=== PATIENT | male | born 1960 | race Caucasian/White ===

== ENCOUNTER 2025-06-10 14:48 | Emergency (ER) | payer MEDICAID, SELFPAY ==
[2025-06-10] VITALS (11 sets, daily range): BP systolic 138–140; BP diastolic 78–86; PULSE 74–95; RESP 15–30; TEMP 36.8; O2SAT 95–100
--- NOTE | ~2025-06-10 | XR_ITS ---
EXAMINATION: XR chest 2V, 06/10/2025 15:15 POSTBED STITCHER HISTORY: chest pain MID ANTERIOR SINCE THIS MORNING COMPARISON: No comparisons available. Technique: 2 views obtained. Findings: The lungs are clear, no effusion. No pneumothorax. Heart is normal size. Mediastinal and hilar contours are within normal limits. Bony thorax no acute abnormality. Impression: No acute cardiopulmonary abnormality. Reviewed, dictated and finalized at location P. BED STITCHER Impression: No acute cardiopulmonary abnormality.
--- NOTE | 2025-06-10 14:50 | ECG_ITS ---
Test Date: 2025-06-10 14:57:37 Measurements Intervals [place] Rate: 88 P: 10 [place]: 170 QRS: -6 QRSD: 89 T: 60 QT: 358 QTc: 435 Interpretive Statements SINUS RHYTHM LOW QRS VOLTAGE IN PRECORDIAL LEADS PATTERN CONSISTENT WITH PULMONARY DISEASE MINIMAL Q WAVES- HIGH LATERAL LEADS BASELINE ARTIFACT- I, II, III, AVR, AVL, AVF, V1, V3-V6 BORDERLINE ECG No previous ECG available for comparison Electronically Signed On 06-10-2025 15:05:18 CUTTER FINISHER by Som Flores D.O.
--- OUTSIDE RECORDS SUMMARY | 2025-06-10 14:50 | XMS_ITS | Encounter Summary ---
Author Organization [facility] Address [address] [place] [address] Phone Care Team Providers Care Digital Media Designer Name Role Phone Jean-Paul Fall APRN, CNP Primary Care Provider Reason for Visit * Reason Comments Medication Refill Encounter Details Date Type Department Care Team (Late st Contact Info) Description 10/23/2020 Refill [facility] - Neurology - [place] [address] [facility] [place] [phone] Tristan Acosta MD [address] [place] [phone] Medication Refill Social History Tobacco Use Types Packs/Day Years Used Date Smoking Tobacco: Every Day Cigarettes 0.5 30 Smokeless Tobacco: Never Alcohol Use Standard Drinks/Week Comments Yes 0 (1 standard drink = 0.6 oz pur e alcohol) Sex and Gender Information Value Date Recorded Sex Assigned at Not on file Legal Sex Male 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
--- OUTSIDE RECORDS SUMMARY | 2025-06-10 14:50 | XMS_ITS | Clinical Summary ---
Author Organization [facility] Address [address] [place] [address] Care Team Providers Care Medicaid Business Analyst Name Role Phone Jean-Paul Fall Praful SILVAN-EQUITY HOLDER Primary Care Provider Source Comments [facility],non-owned Affiliates and Associated Physician Practices is amultiple site organization consisting of ambulatory clinics and hospital sitesin [place], [place], [place] and [place]. This disclosure is being madepursuant to the Care Everywhere program and may not contain all information available regarding this patient. Last updated 18.[facility] Allergies No known active allergies Medications * Be aware that medications may not be up to date on this document. Alwaysverify current medications with the patient. amLODIPine (Norvasc) 10 MG tablet Take 10 mg by mouth once daily 2 Active ALPRAZOLAM PO Take by mouth once daily Active levETIRAcetam (Keppra) 500 MG tablet Take 1 tablet by mouth 2 times daily 2 Active losartan (Cozaar) 50 MG tablet Take 50 mg by mouth Active sertraline (Zoloft) 50 MG tablet Take 50 mg by mouth once daily 2 Active Mavyret 100-40 MG tabletIndicatio ns:Hepatitis C, Genotype 1 Take 3 (three) tablets by mouth daily with food x 8 weeks Reasons: Hepatitis due to Hepatitis C Virus, Genotype 1 84 tablet 1 2 Active Active Problems Problem Noted Date Diagnosed Date Elevated liver enzymes 01/25/2022 Chronic hepatitis C without hepatic coma 022 Overview (04/02/2022): Hepatitis B core antibody non reactive no immunity to hepatitis B Genotype 1a or 1b fibroscan Date of Exam: 04/02/2022 LSM, kPa) median: 12.8 CAP 307 Mild depression 04/15/2019 Overview (01/25/2022): Last Assessment & Plan: Condition: stable. Take medications as ordered by Provider; notify Provider if you cannot take medications as ordered or are having difficulties or side-effects from medications (do not stop medications without notifying Provider). If symptoms worsen or do not improve/stabilize, notify health care provider right away. If thoughts of harming self or others notify health care provider immediately &/or seek urgent/emergent care including calling Suicide Hotline ( ) or 911. Follow up in three months with PCP Seizures 04/15/2019 Overview (01/25/2022): Last Assessment & Plan: Condition: stable Take medication as prescribed. No bathing, swimming, operating dangerous machinery, climbing ladders without supervision No driving unless cleared by your health care provider. Follow up in: three months [place], post-stroke 04/15/2019 Overview (01/25/2022): Last Assessment & Plan: Condition: stable Pt encouraged to remove all clutter, loose rugs and slippery rugs. Avoid wearing loose clotting, wear shoes, non-slip socks that have tax intern on the soles. Move more carefully, install brighter light bulbs. Follow up in: three months with PCP Weakness of both lower extremities 04/15/2019 Overview (01/25/2022): Last Assessment & Plan: Condition: stable Pt encouraged to remove all clutter, loose rugs and slippery rugs. Avoid wearing loose clotting, wear shoes, non-slip socks that have tax intern on the soles. Move more carefully, install brighter light bulbs. Follow up in: three months with PCP Dizziness 03/28/2017 Hypertension 03/28/2017 Overview (01/25/2022): Last Assessment & Plan: Condition: stable Discussed with Valente behavior modifications to include choosing healthier options for foods and avoiding foods fast foods or foods that are fried, high in trans fats or preservatives. Valente encouraged to maintain medication compliance and to increase their current level of exercise activity to 3- 4 times weekly. Valente verbalized understanding and advised to keep all scheduled appointments. Follow up in: three months with PCP Transient ischemic attack 03/28/2017 Family History Medical History Relation Name Comments None Known Father None Known Mother Relation Name Status Comments Father Mother Social History Tobacco Use Types Packs/Day Years Used Date Smoking Tobacco: Every Day Cigarettes Smokeless Tobacco: Never Alcohol Use Standard Drinks/Week Comments Yes 0 (1 standard drink = 0.6 oz pure alcohol) ocassional beer, cut back in the last few months Sex and Gender Information Value Date Recorded Sex Assigned at Not on file Legal Sex Male 5:59 PM PICTURE BOOKER Gender Identity Not on file Sexual Orientation Not on file Last Filed Vital Signs Vital Sign Reading Time Taken Comments Blood Pressure 132/73 04/02/2022 2:35 PM CDT Pulse 78 04/02/2022 2:35 PM CDT Temperature 36.6 C (97.8 F) 04/02/2022 2:35 PM CDT Respiratory Rate 20 01/25/2022 12:34 PM CDT Oxygen Saturation 97% 04/02/2022 2:35 PM CDT Inhaled Oxygen Concentration - - Weight 94.8 kg (209 lb) 04/02/2022 2:35 PM CDT Height 177.8 cm (5' 10) 04/02/2022 2:35 PM CDT Body Mass Index 29.99 04/02/2022 2:35 PM CDT Plan of Treatment Health Maintenance Due Date Last Done Comments COLOGUARD (AGES 45-75) - COLON CA SCREENING 1959 COLON MONITORING 1959 COLONOSCOPY - COLON CA SCREENING 1959 CT COLONOGRAPHY - COLON CA SCREENING 1959 Colorectal Cancer Screening 1959 FIT - COLON CA SCREENING 1959 FLEX SIG - COLON CA SCREENING 1959 LIPID TESTING 1959 DTAP/TDAP/TD VACCINES (1 - Tdap) 1978 PNEUMOCOCCAL VACCINE 50+ (1 of 2 - PCV) 1978 Respiratory Syncytial Virus (RSV) Vaccine Pt: or over 60 yrs (1 - Risk 50-74 years 1-dose series) 2009 ZOSTER VACCINE (1 of 2) 2009 HEPATITIS B VACCINE (1 of 3 - Risk 3-dose series) 2019 AAA SCREENING 02/12/2024 DEPRESSION SCREENING 06/23/2024 COVID-19 VACCINE (1 - season) 2025 INFLUENZA VACCINE (#1) 2025 SCREENING FOR DIABETES 07/04/2025 , 05/22/2022, 01/25/2022, Additional history exists HEPATITIS C SCREENING Completed 07/04/2022 , 07/04/2022, 05/22/2022, Additional history exists HIB VACCINE Aged Out No longer eligi ble based on patient's age to complete this topic HPV VACCINE Aged Out No longer eligi ble based on patient's age to complete this topic MENINGOCOCCAL (Group B) VACCINE SHARED DECISION-MAKING Aged Out No longer eligible based on patient's age to complete this topic MENINGOCOCCAL GROUPS A/C/Y/W VACCINE Aged Out No longer eligible based on patient's age to complete this topic Goals Goal Patient Goal Type Associated Problems Recent Progress Patient-Stated? Author Medication Management General On track( 022 2:41 PM CDT) Petrona Crow RN Note: Expected end date: Ongoing Interventions: Take all medications as prescribed Let your doctor know right away about any changes in your medications Make sure to request a refill of your medication at least one week prior to your last dose Procedures Procedure Name Priority Date/Time Associated Diagnosis Comments COMPREHENSIVE METABOLIC PANEL Routine 07/04/2022 3:41 PM PICTURE BOOKER Chronic hepatitis C without hepatic coma HEPATITIS C RNA QUANTITATIVE Routine 07/04/2022 3:41 PM PICTURE BOOKER Chronic hepatitis C without hepatic coma from Last 3 Months or Most Recently Relevant to Health Maintenance Results * HEPATITIS C RNA QUANTITATIVE (07/04/2022 3:41 PM PICTURE BOOKER) [facility] Hepatitis C Virus RNA, Quantitative Real Time PCR <15 NOT DETECTED NOT DETECTED IU/mL [facility] Hepatitis C Virus RNA, Quantitative Real Time PCR <1.18 NOT DETECTED NOT DETECTED Log IU/mL [facility] Comment: This test was performed using Real-Time Polymerase Chain Reaction. Reportable Range: 15 IU/mL to 100,000,000 IU/mL (1.18 Log IU/mL to 8.00 Log IU/mL). The analytical performance characteristics of this assay have been determined by [employer]. The modifications have not been cleared or approved by the FDA. This assay has been validated pursuant to the CLIA regulations and is used for clinical purposes. For more information on this test, go to: http://education.Ulule/faq/TVG34u3 (This link is being provided for informational/ educational purposes only.) Test Performed at: [facility] [address] [place] [address] IRENE LAM DO,MPH Blood BLOOD SPECIMEN / Unknown 07/04/2022 3:41 PM PICTURE BOOKER 07/04/2022 3:42 PM PICTURE BOOKER Flavia Roberts [facility] - CHEMISTRY LATHA WOLFE Final Result [facility] [address] [place] [address] * (ABNORMAL) COMPREHENSIVE METABOLIC PANEL (07/04/2022 3:41 PM PICTURE BOOKER) [facility] Glucose 91 65 - 99 mg/dL [facility] Comment: Fasting reference interval BUN 9 7 - 25 mg/dL [facility] Creatinine 0.78 0.70 - 1.35 mg/dL [facility] eGFR by Cystatin C 100 > OR = 60 mL/min/1. 73m2 [facility] Comment: The eGFR is based on the CKD-EPI 2020 equation. To calculate the new eGFR from a previous Creatinine or Cystatin C result, go to https://www.kidney.org/professionals/ kdoqi/gfr%5Fcalculator BUN/Creatinine Ratio NOT APPLICABLE 6 - 22 (calc) [facility] Sodium 129(L) 135 - 146 mmol/L [facility] Potassium 4.8 3.5 - 5.3 mmol/L [facility] Chloride 95(L) 98 - 110 mmol/L [facility] CO2 27 20 - 32 mmol/L [facility] Calcium 9.6 8.6 - 10.3 mg/dL [facility] Protein Total 8.4(H) 6.1 - 8.1 g/dL [facility] Albumin 4.3 3.6 - 5.1 g/dL [facility] Globulin Total 4.1(H) 1.9 - 3.7 g/dL (calc) [facility] Albumin/Globuli n Ratio 1.0 1.0 - 2.5 (calc) [facility] Bilirubin Total 0.7 0.2 - 1.2 mg/dL [facility] Alkaline Phosphatase 85 35 - 144 U/L [facility] AST 32 10 - 35 U/L [facility] ALT 29 9 - 46 U/L [facility] Comment: Test Performed at: [facility] [address] [place] [address] IRENE LAM DO,MPH Blood BLOOD SPECIMEN / Unknown 07/04/2022 3:41 PM PICTURE BOOKER 07/04/2022 3:42 PM PICTURE BOOKER us Flavia Roberts [facility] - CHEMISTRY ORDE YANETH Final Result [facility] [address] [place] [address] from Last 3 Months or Most Recently Relevant to Health Maintenance Insurance [facility] Care Teams Medicaid Business Analyst Relationship Specialty Start Date End Date Jean-Paul Fall, CATTLE RANCHER-EQUITY HOLDER [address] [place] [phone] PCP - General Nurse Practitioner Family 01/25/22
--- OUTSIDE RECORDS SUMMARY | 2025-06-10 14:50 | XMS_ITS | Encounter Summary ---
Author Organization [facility] Address [address] [place] [address] Phone Care Team Providers Care Spool Worker Name Role Phone Jean-Paul Fall APRN, CNP Primary Care Provider Reason for Visit * Reason Comments Medication Refill Encounter Details Date Type Department Care Team (Late st Contact Info) Description [facility]/29/20[facility] [address] [place] [phone] Tristan Acosta MD [address] [place] [address] Medication Refill Social History Tobacco Use Types Packs/Day Years Used Date Smoking Tobacco: Every Day Cigarettes 0.5 30 Smokeless Tobacco: Never Alcohol Use Standard Drinks/Week Comments Yes 0 (1 standard drink = 0.6 oz pur e alcohol) Sex and Gender Information Value Date Recorded Sex Assigned at Not on file Legal Sex Male 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
--- OUTSIDE RECORDS SUMMARY | 2025-06-10 14:50 | XMS_ITS | Encounter Summary ---
Author Organization [facility] Address [address] [place] [address] Phone Care Team Providers Care Bagger Meat Name Role Phone Jean-Paul Fall APRN, CNP Primary Care Provider Reason for Visit * Reason Comments Medication Refill Encounter Details Date Type Department Care Team (Late st Contact Info) Description 06/30/2020 Refill [facility] - Neurology - [place] [address] [facility] [place] [phone] Tristan Acosta MD [address] [place] [phone] Medication Refill Social History Tobacco Use Types Packs/Day Years Used Date Smoking Tobacco: Every Day Cigarettes 0.5 30 Smokeless Tobacco: Never Alcohol Use Standard Drinks/Week Comments Yes 0 (1 standard drink = 0.6 oz pur e alcohol) Sex and Gender Information Value Date Recorded Sex Assigned at Not on file Legal Sex Male 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
--- OUTSIDE RECORDS SUMMARY | 2025-06-10 14:50 | XMS_ITS | Encounter Summary ---
Author Organization [facility] Address [address] [place] [address] Phone Care Team Providers Care Technical Staff Assistant Name Role Phone Jean-Paul Fall APRN, CNP Primary Care Provider Reason for Visit * Reason Comments Medication Refill Encounter Details Date Type Department Care Team (Late st Contact Info) Description [facility] [address] [place] [phone] Tristan Acosta MD [address] [place] [address] Medication Refill Social History Tobacco Use Types Packs/Day Years Used Date Smoking Tobacco: Every Day Cigarettes 0.5 30 Smokeless Tobacco: Never Alcohol Use Standard Drinks/Week Comments Yes 0 (1 standard drink = 0.6 oz pur e alcohol) Sex and Gender Information Value Date Recorded Sex Assigned at Not on file Legal Sex Male 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
--- OUTSIDE RECORDS SUMMARY | 2025-06-10 14:50 | XMS_ITS | Clinical Summary ---
Author Organization [facility] Address [address] [facility] [place] [address] Phone Care Team Providers Care Fuel Cell Engineer Name Role Phone Jean-Paul Fall APRN, MAMIE Primary Care Provider Allergies No known active allergies Medications amLODIPine (NORVASC) 10 MG Tablet 08/08/2017 Active ALPRAZOLAM PO Take by mouth. Active losartan (COZAAR) 50 MG Tablet Take 50 mg by mouth. Active sertraline (ZOLOFT) 50 MG Tablet TAKE 1 TABLET BY MOUTH ONCE DAILY 02/23/2021 Active levETIRAcetam (KEPPRA) 500 MG TabletIndication s:Seizure Take 1 tablet by mouth twice daily 180 Tablet 08/20/2021 Active Active Problems No known active problems Family History Medical History Relation Name Comments Diabetes Father Cancer Mother Relation Name Status Comments Father Mother Social History Tobacco Use Types Packs/Day Years Used Date Smoking Tobacco: Every Day Cigarettes 0.5 30 Smokeless Tobacco: Never Tobacco Cessation:Ready to Q uit: Yes; Counseling Given: No Alcohol Use Standard Drinks/Week Comments Yes 0 (1 standard drink = 0.6 oz pur e alcohol) Sex and Gender Information Value Date Recorded Sex Assigned at Not on file 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 Gender Identity Not on file Sexual Orientation Not on file Last Filed Vital Signs Vital Sign Reading Time Taken Comments Blood Pressure 130/84 03/09/2021 10:24 AM CDT Pulse 104 03/09/2021 10:24 AM CDT Temperature 36.7 C (98.1 F) 03/09/2021 10:24 AM CDT Respiratory Rate 20 03/09/2021 10:24 AM CDT Oxygen Saturation 97% 03/09/2021 10:24 AM CDT Inhaled Oxygen Concentration - - Weight 97.6 kg (215 lb 3.2 oz) 03/09/2021 10:24 AM CDT Height 177.8 cm (5' 10) 03/09/2021 10:24 AM CDT Body Mass Index 30.88 03/09/2021 10:24 AM CDT Plan of Treatment Health Maintenance Due Date Last Done Comments Hepatitis C Virus (HCV) Screening 1960 TdaP Immunization 1960 Cologuard 02/12/2004 Colonoscopy 02/12/2004 Colorectal Cancer Screening 02/12/2004 Immunochemical Fecal Occult Blood 02/12/2004 Pneumococcal Immunization (5 0+ years) (1 of 1 - PCV) 2009 Zoster Immunization (1 of 2) 2009 Influenza Immunization (#1) 2025 SARS-COV-2 Immunization (2 - season) 2025 11/28/2020 Respiratory Syncytial Virus (RSV) Immunization (Adult) (1 - 1-dose 75+ series) 2034 Hepatitis B Immunization Aged Out No longer eligible based on patient's age to complete this topic Human Papillomavirus (HPV) Immunization (No Doses Required) Completed Meningococcal Immunization (ACWY) Aged Out No longer eligible based on patient's age to complete this topic Rotavirus Immunization Aged Out No lo nger eligible based on patient's age to complete this topic Insurance [address] [place] [address] MEDICAID [place] Care Teams Fuel Cell Engineer Relationship Specialty Start Date End Date Jean-Paul Fall, UM RN, YOUTH OFFICER [address] [place] [address] PCP - General Certified Nurse Practitioner 07/09/17
[2025-06-10] MEDS: ASPIRIN 81 MG CHEWABLE TABLET 324 MG PO (15:03)
[2025-06-10 15:16] LABS: Hematocrit 45.8 % (42.0-52.0); Hemoglobin 15.5 g/dL (14.0-18.0); Immature Granulocyte Percent A 0.4 % (0-0.5); Lymphocytes Absolute Auto 0.98 K/mm3 (0.9-3.2); Mean Corpuscular HGB Conc 33.8 g/dl (32-36); Mean Corpuscular Hemoglobin 29.3 pg (26-34); Mean Corpuscular Volume 86.6 fl (80-100); Nucleated Red Blood Cells Absolute Auto 0.000 K/mm3 (0.0-0.012); Nucleated Red Blood Cells Perc 0.0 % (0.0-0.2); Platelet Count Result 293 k/mm3 (150-375); Red Blood Count 5.29 M/mm3 (4.6-6.20); White Blood Count 15.0 K/mm3 (4.5-10.0)
[2025-06-10 15:28] LABS: Alanine Aminotransferase 31 U/L (6-50); Albumin Level 5.2 g/dL (3.5-5.1); Alkaline Phosphatase 98 U/L (38-126); Anion Gap 14 mmol/L (4-12); Aspartate Amino Transferase 52 U/L (17-59); Bilirubin,Total 1.1 mg/dL (0.2-1.3); Blood Urea Nitrogen 19 mg/dL (9-20); Calcium 10.4 mg/dL (8.4-10.2); Carbon Dioxide 22 mmol/L (22-30); Chloride 102 mmol/L (98-107); Estimated CRCL calculation 60 ml/min; Estimated Glomerular Filt Rate > 60; Glucose 111 mg/dL (65-110); Lipase 101 U/L (23-300); Potassium 4.3 mmol/L (3.4-5.0); Sodium 138 mmol/L (137-145)
[2025-06-10 15:29] LABS: INR 1.1; Partial Thromboplastin Time 24.2 Seconds (22.3-36.8); Prothrombin Time 14.2 Seconds (11.1-14.7)
[2025-06-10 15:38] LABS: Troponin I < 0.012 ng/mL (0.000-0.034)
[2025-06-10 15:39] LABS: Total Protein 10.8 g/dL (6.3-8.2)
--- OUTSIDE RECORDS SUMMARY | 2025-06-10 15:56 | XMS_ITS | Encounter Summary ---
Author Organization [facility] Address [address] [place] [address] Phone Care Team Providers Care Sales Administration Manager Name Role Phone Jean-Paul Fall APRN, CNP Primary Care Provider Reason for Visit * Reason Comments Medication Refill Encounter Details Date Type Department Care Team (Late st Contact Info) Description [facility] [address] [place] [phone] Tristan Acosta MD [address] [place] [address] Medication Refill Social History Tobacco Use Types Packs/Day Years Used Date Smoking Tobacco: Every Day Cigarettes 0.5 30 Smokeless Tobacco: Never Alcohol Use Standard Drinks/Week Comments Yes 0 (1 standard drink = 0.6 oz pur e alcohol) Sex and Gender Information Value Date Recorded Sex Assigned at Not on file Legal Sex Male 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
--- OUTSIDE RECORDS SUMMARY | 2025-06-10 15:56 | XMS_ITS | Encounter Summary ---
Author Organization [facility] Address [address] [place] [address] Phone Care Team Providers Care Technical Stenographer Name Role Phone Jean-Paul Fall APRN, CNP Primary Care Provider Reason for Visit * Reason Comments Medication Refill Encounter Details Date Type Department Care Team (Late st Contact Info) Description 05/29/[facility] [address] [place] [phone] Tristan Acosta MD [address] [place] [address] Medication Refill Social History Tobacco Use Types Packs/Day Years Used Date Smoking Tobacco: Every Day Cigarettes 0.5 30 Smokeless Tobacco: Never Alcohol Use Standard Drinks/Week Comments Yes 0 (1 standard drink = 0.6 oz pur e alcohol) Sex and Gender Information Value Date Recorded Sex Assigned at Not on file Legal Sex Male 2:30 PM POULTRY INSPECTOR Gender Identity Not on file Sexual Orientation Not on file documented as of this encounter Plan of Treatment Not on file documented as of this encounter Visit Diagnoses Diagnosis Seizure Other convulsions documented in this encounter Care Teams Technical Stenographer Relationship Specialty Start Date End Date Jean-Paul Fall APRN, CNP [address] [address] PCP - General Certified Nurse Practitioner 07/09/17 documented as of this encounter
--- OUTSIDE RECORDS SUMMARY | 2025-06-10 15:56 | XMS_ITS | Clinical Summary ---
Author Organization [facility] Address [address] [facility] [place] [address] Phone Care Team Providers Care Trust Manager Assistant Name Role Phone Jean-Paul Fall APRN, MAMIE [...] on file Legal Sex Male 2:30 PM ACCOUNTS PAYABLE PAYROLL COORDINATOR Gender Identity Not on file Sexual Orientation [...] complete this topic Insurance [address] [place] [address] MEDICAID [place] Care Teams Trust Manager Assistant Relationship Specialty Start Date End Date Jean-Paul Fall, NEAR EAST ARCHEOLOGY PROFESSOR, INSTRUCTOR DECORATING [address] [place] [place] [address] PCP - General Certified Nurse Practitioner 07/09/17
--- OUTSIDE RECORDS SUMMARY | 2025-06-10 15:56 | XMS_ITS | Encounter Summary ---
Author Organization [facility] Address [address] [place] [address] Phone Care Team Providers Care Wellness Assistant Name Role Phone Jean-Paul Fall APRN, CNP Primary Care Provider Reason for Visit * Reason Comments Medication Refill Encounter Details Date Type Department Care Team (Late st Contact Info) Description 10/23/2020 Refill [facility] - Neurology - [place] [address] [facility] [place] [phone] Tristan Acosta MD [address] [place] [phone] Medication Refill Social History Tobacco Use Types Packs/Day Years Used Date Smoking Tobacco: Every Day Cigarettes 0.5 30 Smokeless Tobacco: Never Alcohol Use Standard Drinks/Week Comments Yes 0 (1 standard drink = 0.6 oz pur e alcohol) Sex and Gender Information Value Date Recorded Sex Assigned at Not on file Legal Sex Male 2:30 PM FRONT OFFICE MEDICAL ASSISTANT Gender Identity Not on file Sexual Orientation Not on file documented as of this encounter Plan of Treatment Not on file documented as of this encounter Visit Diagnoses Diagnosis Seizure Other convulsions documented in this encounter Care Teams Wellness Assistant Relationship Specialty Start Date End Date Jean-Paul Fall APRN, CNP [address] [id number] PCP - General Certified Nurse Practitioner 07/09/17 documented as of this encounter
--- OUTSIDE RECORDS SUMMARY | 2025-06-10 15:56 | XMS_ITS | Encounter Summary ---
Author Organization [facility] Address [address] [place] [address] Phone Care Team Providers Care Cracking And Fanning Machine Operator Name Role Phone Jean-Paul Fall APRN, CNP Primary Care Provider Reason for Visit * Reason Comments Medication Refill Encounter Details Date Type Department Care Team (Late st Contact Info) Description 06/30/2020 Refill [facility] - Neurology - [place] #1 [facility] [place] [phone] Tristan Acosta MD [address] [place] [phone] Medication Refill Social History Tobacco Use Types Packs/Day Years Used Date Smoking Tobacco: Every Day Cigarettes 0.5 30 Smokeless Tobacco: Never Alcohol Use Standard Drinks/Week Comments Yes 0 (1 standard drink = 0.6 oz pur e alcohol) Sex and Gender Information Value Date Recorded Sex Assigned at Not on file 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 Gender Identity Not on file Sexual Orientation Not on file documented as of this encounter Plan of Treatment Not on file documented as of this encounter Visit Diagnoses Diagnosis Seizure Other convulsions documented in this encounter Care Teams Cracking And Fanning Machine Operator Relationship Specialty Start Date End Date Jean-Paul Fall APRN, CNP [address] [place] [id number] PCP - General Certified Nurse Practitioner 07/09/17 documented as of this encounter
[2025-06-10] MEDS: KETOROLAC 15 MG/ML VIAL (*BKC) IV PUSH (16:23)
--- NOTE | 2025-06-10 16:51 | ED_ITS ---
HPI - Chest Pain General Chief Complaint: Chest Pain Stated Complaint: chest pain Time Seen by Provider: 06/10/25 15:09 History of Present Illness HPI narrative: Patient is a 65-year-old male who presents ER with chest pain. Right-sided. Point tender lower right chest wall near the the sternum. No known trauma. Worse with lifting himself up out of bed. No exertional chest pain. No dyspnea. No nausea vomiting. No cough. No known trauma. Has not tried any pain medications. Related Data Allergies Allergy/AdvReac Type Severity Reaction Status Date / Time No Known Allergies Allergy Verified 06/10/25 15:01 Review of Systems 2 Review of Systems: All systems reviewed & are unremarkable except as noted in HPI and below Constitutional: Constitutional: Reports no additional constitutional complaints ENT: Reports system reviewed and no additional complaints, except as documented Respiratory: Respiratory: Reports no additional respiratory complaints Gastrointestinal: Gastrointestinal: Reports no additional gastrointestinal complaints Musculoskeletal: Musculoskeletal: Reports no additional musculoskeletal complaints PMFSH Past Medical History Medical History (Updated 06/10/25 @ 16:58 by Teo Craig MD) Seizure disorder Diabetes Hypertension Surgical History Surgical History (Updated 06/10/25 @ 16:54 by Teo Craig MD) No pertinent past surgical history Exam 2 Narrative: GENERAL: Well-appearing, well-nourished, and in no acute distress. HEAD: Normocephalic, atraumatic. ENT: Mucous membranes moist. NECK: Supple. CHEST: Clear to auscultation. No respiratory distress. Tender to palpation right chest wall just lateral the right sternum lower chest. No bruising or swelling. HEART: Regular rate and rhythm. Normal peripheral pulses. ABDOMEN: Soft, nontender, nondistended. EXTREMITIES: Normal range of motion. No edema. SKIN: Warm, dry, no rash. NEURO: Alert and oriented x3. PSYCH: Normal mood and affect. Course Course Emergency Course: Patient resting comfortably. Received IV Toradol for pain which helped. White blood cell count slightly elevated but nonspecific. Electrolytes and liver function test normal. Troponin negative. Chest x-ray without pneumonia. EKG without ischemia. Appropriate discharge home. Will start on scheduled anti- inflammatories. Vital Signs Vital signs: Vital Signs Temperature 98.2 F 06/10/25 14:54 Pulse Rate 88 06/10/25 14:54 Respiratory Rate 16 06/10/25 14:54 Blood Pressure 138/78 06/10/25 14:54 Pulse Oximetry 98 06/10/25 14:54 Temperature 98.2 F 06/10/25 14:54 Pulse Rate 74 06/10/25 16:15 Respiratory Rate 15 06/10/25 16:15 Blood Pressure 138/78 06/10/25 15:00 Pulse Oximetry 95 06/10/25 16:15 Oxygen Delivery Room Air 06/10/25 15:07 MDM Differential Diagnosis Differential Diagnosis: ACS, costochondritis, musculoskeletal pain, pneumothorax, pneumonia, PE Lab Data MDM Lab Attestation statement: I personally reviewed the patient's lab results. 06/10/25 15:06 06/10/25 15:06 Labs: Lab Results 06/10/25 Range/Units 15:06 WBC 15.0 H (4.5-10.0) K/mm3 RBC 5.29 (4.6-6.20) M/mm3 Hgb 15.5 (14.0-18.0) g/dL Hct 45.8 (42.0-52.0) % MCV 86.6 (80-100) fl MCH 29.3 (26-34) pg MCHC 33.8 (32-36) g/dl RDW 12.7 (11.5-14.5) % Plt Count 293 (150-375) k/mm3 MPV 9.9 (7.4-10.4) fl Immature Gran % (Auto) 0.4 (0-0.5) % Neut % (Auto) 85.8 H (45.5-73.1) % Lymph % (Auto) 6.5 L (18.3-44.2) % [place] % (Auto) 6.2 (2.6-8.5) % Eos % (Auto) 0.5 (0-4.4) % Baso % (Auto) 0.6 (0.2-1.2) % Lymph # (Auto) 0.98 (0.9-3.2) K/mm3 [place] # (Auto) 0.9 H (0.1-0.6) K/mm3 Eos # (Auto) 0.1 (0-0.3) K/mm3 Baso # (Auto) 0.1 (0.0-0.1) K/mm3 Abs Immat Gran (auto) 0.06 H (0.00-0.031) K/mm3 Absolute Neuts (auto) 12.9 H (1.3-6.7) K/mm3 Absolute Nucleated RBC 0.000 (0.0-0.012) K/mm3 Nucleated RBC % 0.0 (0.0-0.2) % PT 14.2 (11.1-14.7) Seconds INR 1.1 APTT 24.2 (22.3-36.8) Seconds Sodium 138 (137-145) mmol/L Potassium 4.3 (3.4-5.0) mmol/L Chloride 102 (98-107) mmol/L Carbon Dioxide 22 (22-30) mmol/L Anion Gap 14 H (4-12) mmol/L BUN 19 (9-20) mg/dL Creatinine 1.11 (0.7-1.3) mg/dL Estim Creat Clear Calc 60 ml/min Estimated GFR > 60 (59 - ) Glucose 111 H (65-110) mg/dL Calcium 10.4 H (8.4-10.2) mg/dL Total Bilirubin 1.1 (0.2-1.3) mg/dL AST 52 (17-59) U/L ALT 31 (6-50) U/L Alkaline Phosphatase 98 (38-126) U/L Troponin I < 0.012 (0.000-0.034) ng/mL Total Protein 10.8 H (6.3-8.2) g/dL Albumin 5.2 H (3.5-5.1) g/dL Lipase 101 (23-300) U/L Imaging Data Attestation: I personally reviewed and interpreted this imaging study as follows: Radiologist's impression: ITS Impressions Chest X-Ray 06/10/25 15:26 Impression: No acute cardiopulmonary abnormality. ECG Data EKG #1: Attestation: I personally reviewed and interpreted this ECG as follows: ECG completion date: 06/10/25 ECG completion time: 14:57 normal rate (88), sinus rhythm, no ectopy, no ST changes, normal QRS and normal QT Discharge Plan Discharge Clinical Impression: Costalchondritis Patient Disposition: Home Condition: Stable Instructions: Costochondritis (ED) Additional Instructions: Please return to the emergency department if you develop severe and persistent chest pain, difficulty breathing, dizziness, leg swelling or if you are coughing up blood as these can be signs of a medical emergency. Please call your doctor for a follow up appointment to determine the need for further testing. Patient Language: Khmer Prescriptions: New naproxen 375 mg tablet 375 mg PO BID Qty: 14 0RF Follow-up/Referrals: Juan David,Jean-Paul SCRAP IRON CUTTER [Primary Care Provider] - 1 Week Quality HEART score for chest pain patients History: slightly suspicious ECG: normal Age: > or = to 65 years Risk factors: 1 or 2 risk factors Troponin: < or = to 1x normal limit Heart score: 3
== END 2025-06-10 17:09 | disposition home or self-care (01) ==
PROVIDERS: Emergency Provider Emergency Medicine; PCP Nurse Practitioner Family
DX: M94.0 Chondrocostal junction syndrome [Tietze] (principal); E11.9 Type 2 diabetes mellitus without complications; I10 Essential (primary) hypertension; G40.909 Epilepsy, unspecified, not intractable, without status epilepticus
CPT/HCPCS: 36415; 71046; 80053; 83690; 84484; 85025; 85610; 85730; 93005; 96374; 99284; A9270; J1885